=== PATIENT | female | born 1995 ===

== ENCOUNTER 2023-01-07 16:58 | Emergency (ER) | payer OTHER, SELFPAY ==
--- NOTE | ~2023-01-07 | XR_ITS ---
EXAMINATION: XR LUMBOSACRAL SPINE CLINICAL INFORMATION: Lower back pain COMPARISON: None available. TECHNIQUE: Three views of the lumbosacral spine. FINDINGS: Changes of sacroiliitis condensans ilii left greater than right. The vertebral bodies and posterior elements are normal. The disc spaces are preserved and the vertebral alignment is normal. The paraspinal soft tissues are normal. XR/XR lumbar spine 2-3V IMPRESSION: Changes of sacroiliitis condensans ilii left greater than right.
[2023-01-07 17:06] VITALS: BP 117/77; PULSE 65; RESP 16; TEMP 36.6; O2SAT 99; BMI 31.9
--- NOTE | 2023-01-07 17:06 | ED_ITS ---
HPI - General Adult General Chief complaint: Back Pain/Injury Stated complaint: back injury, work inj Time Seen by Provider: 01/07/23 18:34 Source: patient, RN notes reviewed and old records reviewed Mode of arrival: ambulatory Limitations: no limitations History of Present Illness HPI narrative: 27 years old female is here today reporting lower back pain. Patient reports that she has been pushing very patient in the wheelchair. Patient works for [employer]. Patient was very heavy, weighing over 300 lb. Patient felt pain almost immediately after she was finish pushing him. lumbar spine x- ray reviewed and negative for any acute processes. Will send patient home with cyclobenzaprine and ibuprofen. Onset (ago): hour(s) Location: back Severity: moderate Severity scale (1-10): 8 Quality: aching Pain Consistency: intermittent Related Data Previous Rx's Medication Instructions Recorded cyclobenzaprine 10 mg tablet 10 mg PO BEDTIME #10 tabs 01/07/23 ibuprofen 600 mg tablet 600 mg PO Q8H PRN pain #20 tabs 01/07/23 Allergies Allergy/AdvReac Type Severity Reaction Status Date / Time No Known Allergies Allergy Verified 01/07/23 17:07 Review of Systems Constitutional: Constitutional: Denies weight gain and Denies weight loss ENT: Reports system reviewed and no additional complaints, except as documented Cardiovascular: Cardiovascular: Reports no additional cardiovascular complaints Respiratory: Respiratory: Reports no additional respiratory complaints Gastrointestinal: Gastrointestinal: Reports no additional gastrointestinal complaints Genitourinary: Genitourinary: Reports no additional female genitourinary complaints Musculoskeletal: Musculoskeletal: Reports back pain, Denies joint swelling and Reports muscle cramps Neurologic: Reports system reviewed and no additional complaints, except as documented Psychiatric: Psychiatric: Reports no additional psychiatric complaints Endocrine: Endocrine: Reports no additional endocrine complaints PMFSH Social History Social History Advance Directives: No Physical Exam ED Vital Signs: Vital Signs - 24 hr 01/07/23 17:06 Temperature 97.9 F Pulse Rate 65 Respiratory Rate 16 Blood Pressure 117/77 Pulse Oximetry 99 Oxygen Delivery Method Room Air BMI result Body Mass Index 31.9 Const General: healthy appearing, no acute distress and well developed Nutritional Appearance: well nourished and obese Orientation/consciousness: patient oriented x3 HENMT Head: Yes normal to inspection, Yes normocephalic and Yes atraumatic Face and sinus: Yes normal facial exam Mouth: Normal oral and palatal mucosa present Throat: Yes posterior oropharynx normal, Yes tonsils normal and Yes uvula midline Eyes General: appearance normal, both eyes and all related structures Neck Neck: Yes normal visual inspection, Yes full ROM and Yes trachea midline Thyroid: Thyroid normal Resp Effort & Inspection: normal respiratory effort, able to speak in complete sentences, no tracheal deviation and symmetric chest movement Auscultation: clear to auscultation bilaterally Cardio Rate: regular rate Heart sounds: S1 normal heart sound present and S2 normal heart sound present GI Inspection: Yes normal to inspection, No distended and Yes obesity Palpation (GI): Soft to palpation, not firm, nontender and No hepatosplenomegaly present Auscultation: normal bowel sounds General: Yes no CVA tenderness Back/Spine/Pelvis Back: no CVA tenderness Skin General skin exam: elasticity normal, turgor normal and dry skin Neuro General: patient oriented x3 Psych Appearance: grossly normal Mental Status: mental status grossly normal Speech and movement: Normal speech and movement present Course Course Course Narrative: RME performed by Nany Munoz PA-C. Patient is a 27 year old assigned female at presenting to the emergency department with low back pain. Imaging ordered. Patient placed back in the waiting room pending room availability and results. 27 years old female is here today reporting lower back pain. Patient reports that she has been pushing very patient in the wheelchair. Patient works for [employer]. Patient was very heavy, weighing over 300 lb. Patient felt pain almost immediately after she was finish pushing him. lumbar spine x- ray reviewed and negative for any acute processes. Will send patient home with cyclobenzaprine and ibuprofen. Medical Decision Making Medical Decision Making MDM Narrative: 27 years old female is here today reporting lower back pain. Patient reports that she has been pushing very patient in the wheelchair. Patient works for [employer]. Patient was very heavy, weighing over 300 lb. Patient felt pain almost immediately after she was finish pushing him. lumbar spine x- ray reviewed and negative for any acute processes. Will send patient home with cyclobenzaprine and ibuprofen. Discharge Plan Discharge Clinical Impression: Strain of lumbar region Patient Disposition: Home, Self-Care Instructions: Muscle Strain (ED), Back Pain (ED) Additional Instructions: you were seen here today for back pain. Your x-ray is negative for any acute processes. Please follow-up with your primary care provider. You will be given script for cyclobenzaprine and ibuprofen. Please make sure that you do not drink alcohol while taking cyclobenzaprine, do not drive. Prescriptions: New cyclobenzaprine 10 mg tablet 10 mg PO BEDTIME Qty: 10 0RF ibuprofen 600 mg tablet 600 mg PO Q8H PRN (Reason: pain) Qty: 20 0RF Stand Alone Forms: Work/School Release Interventions: ED Discharge Assessment Last Done: 01/07/23 19:12 Discharge Date/Time: 01/07/23 18:57
== END 2023-01-07 18:57 | disposition home or self-care (01) ==
PROVIDERS: Emergency Provider Internal Medicine
DX: S39.012A Strain of muscle, fascia and tendon of lower back, initial encounter (principal); X50.0XXA Overexertion from strenuous movement or load, initial encounter; X50.3XXA Overexertion from repetitive movements, initial encounter; Y93.9 Activity, unspecified; Y92.9 Unspecified place or not applicable; Y99.0 Civilian activity done for income or pay
CPT/HCPCS: 72100; 99282; 99283